=== PATIENT | female | born 1985 | race American Indian/Alaskan Native ===

== ENCOUNTER 2018-12-31 20:40 | Emergency (ER) | payer BC, OTHER ==
[2018-12-31] MEDS ORDERED: Metoclopramide 10 MG/2 ML SDV IVPUSH ONE (21:09)
[2018-12-31 21:19] LABS: ANION GAP 12.6; CHLORIDE,CL 104 mmol/L (101-111); SODIUM,NA 135 mmol/L (135-145)
[2018-12-31] MEDS ORDERED: Famotidine 20 MG/2 ML SDV IVPUSH ONE (21:56)
[2018-12-31] MEDS ORDERED: Iopamidol 612 MG/ML 75 ML Bottle IVPUSH ONE (21:59)
[2018-12-31] MEDS ORDERED: fentaNYL 100 MCG/2 ML SDV IVPUSH ONE (22:05)
[2018-12-31 22:15] VITALS: BP 126/71
--- NOTE | 2018-12-31 23:46 | EDM.PDOC ---
"ED HPI GENERAL MEDICAL PROBLEM - General Chief Complaint: Gastrointestinal Problem Stated Complaint: AMBULANCE Time Seen by Provider: 12/31/18 21:00 Source of Information: Reports: Patient History Limitations: Reports: No Limitations - History of Present Illness INITIAL COMMENTS - FREE TEXT/NARRATIVE: epigastric pain since saturday with nausea, no vomiting. diarrhea this jessica. Poor appetite, some water today. Piece of toast this am. Notes works out daily and sometimes fells like this if dehydrated but has been drinking lots of water with workouts. Abdominal Pain Score (Numeric/FACES): 9 - Related Data Allergies Allergy/AdvReac Type Severity Reaction Status Date / Time adhesive tape Allergy Rash Verified 12/31/18 20:49 amoxicillin [Amoxicillin] Allergy Swelling Verified 12/31/18 20:49 hydrocodone Allergy Nausea and Verified 12/31/18 20:49 Vomiting Home Meds: Home Meds Ranitidine HCl [Ranitidine] 1 tab PO BID PRN 01/26/14 [History] Acetaminophen [Tylenol] 650 mg PO Q4H PRN 07/12/16 [History] Past Medical History - Past Health History Medical/Surgical History: Denies Medical/Surgical History HEENT History: Reports: Impaired Vision Cardiovascular History: Reports: None Respiratory History: Reports: None Gastrointestinal History: Reports: Cholelithiasis, GERD Genitourinary History: Reports: UTI, Recurrent ASPHALT PAVER History: Reports: , Other (See Below) Other ASPHALT PAVER History: delivered Musculoskeletal History: Reports: None Neurological History: Reports: None Psychiatric History: Reports: None Endocrine/Metabolic History: Reports: None Hematologic History: Reports: Anemia Immunologic History: Reports: None Oncologic (Cancer) History: Reports: None Dermatologic History: Reports: Other (See Below) Other Dermatologic History: lt armpit cyst removal hx - Infectious Disease History Infectious Disease History: Reports: Chicken Pox - Past Surgical History Head Surgeries/Procedures: Reports: None GI Surgical History: Reports: Cholecystectomy, EGD Female Surgical History: Reports: Section Social & Family History - Family History Family Medical History: Noncontributory - Tobacco Use Smoking Status *Q: Never Smoker - Caffeine Use Caffeine Use: Reports: Other Other Caffeine Use: pre-work out - Recreational Drug Use Recreational Drug Use: No - Living Situation & Occupation Living situation: Reports: with Family Occupation: Unemployed ED ROS GENERAL - Review of Systems Review Of Systems: ROS reveals no pertinent complaints other than HPI. ED EXAM, GI/ABD - Physical Exam Exam: See Below Exam Limited By: No Limitations General Appearance: Alert, Mild Distress Eyes: Bilateral: EOMI Ears: Normal External Exam Nose: Normal Inspection Throat/Mouth: Normal Inspection Head: Atraumatic, Normocephalic Neck: Normal Inspection, Full Range of Motion Respiratory/Chest: No Respiratory Distress, Lungs Clear, Normal Breath Sounds Cardiovascular: Normal Peripheral Pulses, Regular Rate, Rhythm GI/Abdominal Exam: Normal Bowel Sounds, Soft, Tender (epigastric, mild tenderness deep palpation RLQ) Back Exam: Normal Inspection Extremities: Normal Inspection Neurological: Alert, Oriented, Normal Cognition Psychiatric: Flat Affect Skin Exam: Warm, Dry, Intact, Normal Color Course - Vital Signs Last Recorded V/S: Last Vital Signs Temp 98.1 F 12/31/18 20:57 Pulse 94 12/31/18 22:14 Resp 18 12/31/18 20:57 BP 126/71 12/31/18 22:14 Pulse Ox 100 12/31/18 22:14 Orthostatic Blood Pressure [ 118/70 Standing] Orthostatic Blood Pressure [ 120/66 Sitting] Orthostatic Blood Pressure [ 115/68 Supine] - Orders/Labs/Meds Orders: Active Orders 24 hr Category Date Time Status Orthostatic Vital Signs [RC] ASDIRECTED Care 12/31/18 20:53 Active CULTURE STREP A CONFIRMATION [RM] Urgent Lab 12/31/18 21:07 Results STREP SCRN A RAPID W CULT CONF [RM] Urgent Lab 12/31/18 21:07 Results Labs: Laboratory Tests 12/31/18 12/31/18 12/31/18 Range/Units 20:49 20:49 20:49 WBC 13.7 H (5.0-10.0) 10^3/uL RBC 4.37 (4.2-5.4) 10^6/uL Hgb 12.6 D (12.0-16.0) g/dL Hct 37.6 (37.0-47.0) % MCV 86.0 D (80-100) fL MCH 28.8 (27.0-34.0) pg MCHC 33.5 (33.0-35.0) g/dL Plt Count 250 D (150-450) 10^3/uL Neut % (Auto) 69.6 (42.2-75.2) % Lymph % (Auto) 20.9 (20.5-50.1) % [place] % (Auto) 8.3 H (2-8) % Eos % (Auto) 1.1 (1.0-3.0) % Baso % (Auto) 0.1 (0.0-1.0) % Sodium 135 (135-145) mmol/L Potassium 3.6 (3.6-5.0) mmol/L Chloride 104 (101-111) mmol/L Carbon Dioxide 22.0 (21.0-31.0) mmol/L Anion Gap 12.6 BUN 11 (7-18) mg/dL Creatinine 0.7 (0.6-1.3) mg/dL Est Cr Clr Drug Dosing 114.23 mL/min Estimated GFR (MDRD) > 60 BUN/Creatinine Ratio 15.71 Glucose 85 (74-105) mg/dL Calcium 8.1 L (8.4-10.2) mg/dl Magnesium 1.6 L (1.8-2.5) mg/dL Total Bilirubin 0.4 (0.2-1.0) mg/dL AST 26 (10-42) IU/L ALT 24 (10-60) IU/L Alkaline Phosphatase 32 L (42-121) IU/L Total Protein 7.2 (6.7-8.2) g/dl Albumin 3.4 (3.2-5.5) g/dl Globulin 3.8 Albumin/Globulin Ratio 0.89 Amylase 63 (28-100) U/L Lipase 26 (22-51) U/L TSH, Ultra Sensitive 2.57 (0.45-5.33) uIu/mL HCG, Qual Negative Urine Color (YELLOW) Urine Appearance (CLEAR) Urine pH (5.0-9.0) Ur Specific [place] (1.005-1.030) Urine Protein (NEGATIVE) Urine Glucose (UA) (NEGATIVE) Urine Ketones (NEGATIVE) Urine Occult Blood (NEGATIVE) Urine Nitrite (NEGATIVE) Urine Bilirubin (NEGATIVE) Urine Urobilinogen (0.2-1.0) mg/dL Ur Leukocyte Esterase (NEGATIVE) Urine Opiates Screen (NEGATIVE) Ur Oxycodone Screen (NEGATIVE) Urine Methadone Screen (NEGATIVE) Ur Barbiturates Screen (NEGATIVE) U Tricyclic Antidepress (NEGATIVE) Ur Phencyclidine Scrn (NEGATIVE) Ur Amphetamine Screen (NEGATIVE) U Methamphetamines Scrn (NEGATIVE) Urine MDMA Screen (NEGATIVE) U Benzodiazepines Scrn (NEGATIVE) Urine Cocaine Screen (NEGATIVE) U Marijuana (THC) Screen (NEGATIVE) 12/31/18 12/31/18 Range/Units 20:57 20:57 WBC (5.0-10.0) 10^3/uL RBC (4.2-5.4) 10^6/uL Hgb (12.0-16.0) g/dL Hct (37.0-47.0) % MCV (80-100) fL MCH (27.0-34.0) pg MCHC (33.0-35.0) g/dL Plt Count (150-450) 10^3/uL Neut % (Auto) (42.2-75.2) % Lymph % (Auto) (20.5-50.1) % [place] % (Auto) (2-8) % Eos % (Auto) (1.0-3.0) % Baso % (Auto) (0.0-1.0) % Sodium (135-145) mmol/L Potassium (3.6-5.0) mmol/L Chloride (101-111) mmol/L Carbon Dioxide (21.0-31.0) mmol/L Anion Gap BUN (7-18) mg/dL Creatinine (0.6-1.3) mg/dL Est Cr Clr Drug Dosing mL/min Estimated GFR (MDRD) BUN/Creatinine Ratio Glucose (74-105) mg/dL Calcium (8.4-10.2) mg/dl Magnesium (1.8-2.5) mg/dL Total Bilirubin (0.2-1.0) mg/dL AST (10-42) IU/L ALT (10-60) IU/L Alkaline Phosphatase (42-121) IU/L Total Protein (6.7-8.2) g/dl Albumin (3.2-5.5) g/dl Globulin Albumin/Globulin Ratio Amylase (28-100) U/L Lipase (22-51) U/L TSH, Ultra Sensitive (0.45-5.33) uIu/mL HCG, Qual Urine Color Yellow (YELLOW) Urine Appearance Clear (CLEAR) Urine pH 6.5 (5.0-9.0) Ur Specific [place] <= 1.005 (1.005-1.030) Urine Protein Negative (NEGATIVE) Urine Glucose (UA) Negative (NEGATIVE) Urine Ketones Negative (NEGATIVE) Urine Occult Blood Negative (NEGATIVE) Urine Nitrite Negative (NEGATIVE) Urine Bilirubin Negative (NEGATIVE) Urine Urobilinogen 0.2 (0.2-1.0) mg/dL Ur Leukocyte Esterase Negative (NEGATIVE) Urine Opiates Screen Negative (NEGATIVE) Ur Oxycodone Screen Negative (NEGATIVE) Urine Methadone Screen Negative (NEGATIVE) Ur Barbiturates Screen Negative (NEGATIVE) U Tricyclic Antidepress Negative (NEGATIVE) Ur Phencyclidine Scrn Negative (NEGATIVE) Ur Amphetamine Screen Negative (NEGATIVE) U Methamphetamines Scrn Negative (NEGATIVE) Urine MDMA Screen Negative (NEGATIVE) U Benzodiazepines Scrn Negative (NEGATIVE) Urine Cocaine Screen Negative (NEGATIVE) U Marijuana (THC) Screen Negative (NEGATIVE) Meds: Medications Discontinued Medications Generic Name Dose Route Start Last Admin Trade Name Freq PRN Reason Stop Dose Admin Famotidine 20 mg 12/31/18 21:56 12/31/18 22:12 Pepcid IVPUSH 12/31/18 21:57 20 mg ONETIME ONE Administration Fentanyl 50 mcg 12/31/18 22:05 12/31/18 22:14 Sublimaze IVPUSH 12/31/18 22:06 50 mcg ONETIME ONE Administration Iopamidol 75 ml 12/31/18 21:59 12/31/18 22:25 Isovue-300 (61%) IVPUSH 12/31/18 22:00 75 ml ONETIME ONE Administration Metoclopramide HCl 10 mg 12/31/18 21:09 12/31/18 21:13 Reglan IVPUSH 12/31/18 21:10 10 mg ONETIME ONE Administration Promethazine HCl Confirm 12/31/18 23:48 12/31/18 23:50 Phenergan Administered 12/31/18 23:49 Not Given Dose 25 mg .ROUTE .[facility] - Radiology Interpretation Free Text/Narrative:: [facility] Final Radiology Report Call: [phone] assistance Online chat: [email or web address] Name: ANAMARIA PERRY Age: 33Years F Date: 12/31/2018 SSN: -- : [id number] Study: CT ABDOMEN/PELVIS W Requesting Physician: SHAWNA VILLANUEVA Images: [id number] Addl Studies: Provided Clinical History: Nausea, RLQ pain, left flank pain, wbc 13.7 Contrast: With Contrast Medium: ISO 300 Contrast Amount: 75 mL Contrast Method: L Wrist Page 1 of 2 EXAM: CT Abdomen and Pelvis With Contrast EXAM DATE/TIME: 12/31/2018 10:13 PM CLINICAL HISTORY: 33 years old, female; Abdominal pain; Generalized; Prior surgery; Surgery date: 6+ months; Surgery type: Cholecystectomy; Additional info: Nausea, rlq pain, left flank pain, wbc 13.7 TECHNIQUE: Imaging protocol: Axial computed tomography images of the abdomen and pelvis with intravenous contrast. Coronal and sagittal reformatted images were created and reviewed. Radiation optimization: All CT scans at this facility use at least one of these dose optimization techniques: automated exposure control; mA and/or kV adjustment per patient size (includes targeted exams where dose is matched to clinical indication); or iterative reconstruction. Contrast material: ISO 300; Contrast volume: 75 ml; Contrast route: L WRIST; COMPARISON: CT Abdomen Pelvis wo Cont 01/26/2014 8:07 AM FINDINGS: Lungs: There are no suspicious pulmonary nodules or areas of lung consolidation. ABDOMEN: Liver: The liver is normal in architecture, without suspicious abnormality. Gallbladder and bile ducts: The gallbladder is surgically absent. Pancreas: The pancreatic parenchyma is normal in bulk and sharply marginated. Duct is not dilated. No calcifications, masses, or abnormal fluid collections. Spleen: Spleen is normal in size. No mass or fluid collection. AMAANGELICANAMARIA Aguilar | Final Radiology Report CONFIDENTIALITY STATEMENT This report is intended only for use by the referring physician, and only in accordance with law. If you received this in error, call [phone]. Page 2 of 2 Adrenals: There are no adrenal masses. Kidneys and ureters: Normal in parenchymal bulk. No hydronephrosis or asymmetric perinephric stranding. No solid masses. No stones. Stomach and bowel: Fluid distending the stomach. Small bowel is suspected to be thickened and not dilated.Gas and stool are present within colon. Appendix: The appendix is seen. It is normal. PELVIS: Bladder: The bladder is nearly completely void of urine. Reproductive: The uterus and ovaries are within normal limits. There are no adenexal masses. ABDOMEN and PELVIS: Intraperitoneal space: No ascites. No abscess. No inflammation within the intra- abdominal fat. No pneumoperitoneum. No mass. Bones/joints: Age appropriate. No acute fracture. No dislocation. Soft tissues: See Intraperitoneal Space Finding. Vasculature: Normal. No abdominal aortic aneurysm. Lymph nodes: There are no enlarged celiac, mesenteric, periportal, extraperitoneal or inguinal lymph nodes. IMPRESSION: 1. Normal appendix. 2. Possible enteritis. Thank you for allowing us to participate in the care of your patient. Dictated and Authenticated by: Manpreet Isaac MD 12/31/2018 11:10 PM Central Time ([place] & [place] Departure - Departure Time of Disposition: 23:41 Disposition: Home, Self-Care 01 Condition: Good Clinical Impression: Nausea, Gastroenteritis - Discharge Information *PRESCRIPTION DRUG MONITORING PROGRAM REVIEWED*: Not Applicable *COPY OF PRESCRIPTION DRUG MONITORING REPORT IN PATIENT NABILA: Not Applicable Instructions: Nausea, Adult, [id number] Referrals: PCP,None [Primary Care Provider] - Forms: ED Department Discharge Additional Instructions: sips liquid tonight allow stomach to rest, gradual increase in fluids tomorrow, if tolerating gradual increase in diet small maounts bland low spice or grease. phenergan 25mg one tablet tonight then zofran 4mg every 4 hours as needed for nausea follow up if uncontrolled vomiting, severe pain or fever pepcid 10mg OTC one twice daily for one week then as needed - My Orders Last 24 Hours: My Active Orders 12/31/18 20:53 Orthostatic Vital Signs [RC] ASDIRECTED 12/31/18 21:07 CULTURE STREP A CONFIRMATION [RM] Urgent STREP SCRN A RAPID W CULT CONF [RM] Urgent - Assessment/Plan Last 24 Hours: My Active Orders 12/31/18 20:53 Orthostatic Vital Signs [RC] ASDIRECTED 12/31/18 21:07 CULTURE STREP A CONFIRMATION [RM] Urgent STREP SCRN A RAPID W CULT CONF [RM] Urgent"
[2018-12-31] MEDS ORDERED: Promethazine 25 MG Tab ONE (23:48)
== END 2018-12-31 23:55 | disposition home or self-care (01) ==
LOC: DL.ED 20:40
DX: K52.9 Noninfective gastroenteritis and colitis, unspecified (principal); Z88.1 Allergy status to other antibiotic agents; Z88.5 Allergy status to narcotic agent; Z79.899 Other long term (current) drug therapy
CPT/HCPCS: 36415; 74177; 80053; 80305; 81003; 82150; 83690; 83735; 84443; 84703; 85025; 87081; 87430; 96374; 96375; 99285; J2765; J3010; J3490; Q9967

== ENCOUNTER 2019-09-05 21:51 | Emergency (ER) | payer BC ==
[2019-09-05 22:07] VITALS: BP 131/91; PULSE 87
[2019-09-05] MEDS ORDERED: fentaNYL 100 MCG/2 ML SDV IVPUSH ONE (22:10)
[2019-09-05] MEDS ORDERED: Sodium Chloride 0.9% 1,000 ML IV ONE (22:10)
[2019-09-05] MEDS ORDERED: Ondansetron 4 MG/2 ML SDV IVPUSH ONE ×2 (22:10→23:58)
--- NOTE | 2019-09-05 22:13 | EDM.PDOC ---
ED HPI GENERAL MEDICAL PROBLEM - General Chief Complaint: Gastrointestinal Problem Stated Complaint: RIGHT SIDE HURTING Time Seen by Provider: 09/05/19 22:13 Source of Information: Reports: Patient History Limitations: Reports: No Limitations - History of Present Illness INITIAL COMMENTS - FREE TEXT/NARRATIVE: sick all week, diarrhoea nausea lots of abd pain. no GB but still has appy. Abdomen Pain Score (Numeric/FACES): 10 - Related Data Allergies Allergy/AdvReac Type Severity Reaction Status Date / Time adhesive tape Allergy Rash Verified 09/05/19 22:35 amoxicillin [Amoxicillin] Allergy Swelling Verified 09/05/19 22:35 hydrocodone Allergy Nausea and Verified 09/05/19 22:35 Vomiting Home Meds: Home Meds Ranitidine HCl [Ranitidine] 1 tab PO BID PRN 01/26/14 [History] Acetaminophen [Tylenol] 650 mg PO Q4H PRN 07/12/16 [History] Past Medical History - Past Health History Medical/Surgical History: Denies Medical/Surgical History HEENT History: Reports: Impaired Vision Cardiovascular History: Reports: None Respiratory History: Reports: None Gastrointestinal History: Reports: Cholelithiasis, GERD Genitourinary History: Reports: UTI, Recurrent DATA INTEGRITY SPECIALIST History: Reports: , Other (See Below) Other DATA INTEGRITY SPECIALIST History: delivered Musculoskeletal History: Reports: None Neurological History: Reports: None Psychiatric History: Reports: None Endocrine/Metabolic History: Reports: None Hematologic History: Reports: Anemia Immunologic History: Reports: None Oncologic (Cancer) History: Reports: None Dermatologic History: Reports: Other (See Below) Other Dermatologic History: lt armpit cyst removal hx - Infectious Disease History Infectious Disease History: Reports: Chicken Pox - Past Surgical History Head Surgeries/Procedures: Reports: None GI Surgical History: Reports: Cholecystectomy, EGD Female Surgical History: Reports: Section Social & Family History - Family History Family Medical History: Noncontributory - Caffeine Use Caffeine Use: Reports: Other Other Caffeine Use: pre-work out - Living Situation & Occupation Living situation: Reports: with Family Occupation: Unemployed ED ROS GENERAL - Review of Systems Review Of Systems: Comprehensive ROS is negative, except as noted in HPI. ED EXAM, GI/ABD - Physical Exam Exam: See Below Exam Limited By: No Limitations General Appearance: Alert, WD/WN, Mild Distress, Moderate Distress, Active Emesis, Other (crying and retching) Ears: Hearing Grossly Normal Throat/Mouth: Normal Voice, No Airway Compromise Head: Atraumatic Neck: Non-Tender, Full Range of Motion Respiratory/Chest: No Respiratory Distress Cardiovascular: Regular Rate, Rhythm GI/Abdominal Exam: Tender, Other (generalized). No: Distended, Guarding, Rigid , Rebound Neurological: Alert, Oriented, Normal Cognition, No Motor/Sensory Deficits Psychiatric: Flat Affect, Tearful Skin Exam: Warm, Dry, Normal Color Lymphatic: No Adenopathy Course - Vital Signs Last Recorded V/S: Last Vital Signs Temp 36.4 C 09/05/19 22:06 Pulse 87 09/05/19 22:06 Resp 24 H 09/05/19 22:06 BP 131/91 H 09/05/19 22:06 Pulse Ox 100 09/05/19 22:06 - Orders/Labs/Meds Labs: Laboratory Tests 09/05/19 09/05/19 09/05/19 Range/Units 22:20 22:20 22:20 WBC 15.7 H (5.0-10.0) 10^3/uL RBC 4.82 (4.2-5.4) 10^6/uL Hgb 14.0 (12.0-16.0) g/dL Hct 40.6 (37.0-47.0) % MCV 84.2 (80-100) fL MCH 29.0 (27.0-34.0) pg MCHC 34.5 (33.0-35.0) g/dL Plt Count 308 (150-450) 10^3/uL Neut % (Auto) 63.1 (42.2-75.2) % Lymph % (Auto) 26.1 (20.5-50.1) % [place] % (Auto) 9.6 H (2-8) % Eos % (Auto) 1.0 (1.0-3.0) % Baso % (Auto) 0.2 (0.0-1.0) % Sodium 137 (135-145) mmol/L Potassium 3.2 L (3.6-5.0) mmol/L Chloride 104 (101-111) mmol/L Carbon Dioxide 20.0 L (21.0-31.0) mmol/L Anion Gap 16.2 BUN 13 (7-18) mg/dL Creatinine 0.8 (0.6-1.3) mg/dL Est Cr Clr Drug Dosing 99.01 mL/min Estimated GFR (MDRD) > 60 BUN/Creatinine Ratio 16.25 Glucose 144 H (74-105) mg/dL Calcium 8.8 (8.4-10.2) mg/dl Total Bilirubin 0.4 (0.2-1.0) mg/dL AST 23 (10-42) IU/L ALT 18 (10-60) IU/L Alkaline Phosphatase 35 L (42-121) IU/L Total Protein 7.8 (6.7-8.2) g/dl Albumin 3.8 (3.2-5.5) g/dl Globulin 4.0 Albumin/Globulin Ratio 0.95 Amylase 66 (28-100) U/L Lipase 34 (22-51) U/L HCG, Qual Negative Urine Color (YELLOW) Urine Appearance (CLEAR) Urine pH (5.0-9.0) Ur Specific [place] (1.005-1.030) Urine Protein (NEGATIVE) Urine Glucose (UA) (NEGATIVE) Urine Ketones (NEGATIVE) Urine Occult Blood (NEGATIVE) Urine Nitrite (NEGATIVE) Urine Bilirubin (NEGATIVE) Urine Urobilinogen (0.2-1.0) mg/dL Ur Leukocyte Esterase (NEGATIVE) Urine RBC /HPF Urine WBC (0-5/HPF) /HPF Ur Epithelial Cells (NOT SEEN) /HPF Urine Bacteria (0-FEW/HPF) /HPF Urine Mucus (NOT SEEN) /LPF Urine Other Urine Yeast (NOT SEEN) /HPF Urine Opiates Screen (NEGATIVE) Ur Oxycodone Screen (NEGATIVE) Urine Methadone Screen (NEGATIVE) Ur Barbiturates Screen (NEGATIVE) U Tricyclic Antidepress (NEGATIVE) Ur Phencyclidine Scrn (NEGATIVE) Ur Amphetamine Screen (NEGATIVE) U Methamphetamines Scrn (NEGATIVE) Urine MDMA Screen (NEGATIVE) U Benzodiazepines Scrn (NEGATIVE) Urine Cocaine Screen (NEGATIVE) U Marijuana (THC) Screen (NEGATIVE) 09/05/19 09/05/19 Range/Units 22:55 22:55 WBC (5.0-10.0) 10^3/uL RBC (4.2-5.4) 10^6/uL Hgb (12.0-16.0) g/dL Hct (37.0-47.0) % MCV (80-100) fL MCH (27.0-34.0) pg MCHC (33.0-35.0) g/dL Plt Count (150-450) 10^3/uL Neut % (Auto) (42.2-75.2) % Lymph % (Auto) (20.5-50.1) % [place] % (Auto) (2-8) % Eos % (Auto) (1.0-3.0) % Baso % (Auto) (0.0-1.0) % Sodium (135-145) mmol/L Potassium (3.6-5.0) mmol/L Chloride (101-111) mmol/L Carbon Dioxide (21.0-31.0) mmol/L Anion Gap BUN (7-18) mg/dL Creatinine (0.6-1.3) mg/dL Est Cr Clr Drug Dosing mL/min Estimated GFR (MDRD) BUN/Creatinine Ratio Glucose (74-105) mg/dL Calcium (8.4-10.2) mg/dl Total Bilirubin (0.2-1.0) mg/dL AST (10-42) IU/L ALT (10-60) IU/L Alkaline Phosphatase (42-121) IU/L Total Protein (6.7-8.2) g/dl Albumin (3.2-5.5) g/dl Globulin Albumin/Globulin Ratio Amylase (28-100) U/L Lipase (22-51) U/L HCG, Qual Urine Color Yellow (YELLOW) Urine Appearance Slightly cloudy (CLEAR) Urine pH 6.5 (5.0-9.0) Ur Specific [place] 1.020 (1.005-1.030) Urine Protein Negative (NEGATIVE) Urine Glucose (UA) Negative (NEGATIVE) Urine Ketones Negative (NEGATIVE) Urine Occult Blood Small H (NEGATIVE) Urine Nitrite Negative (NEGATIVE) Urine Bilirubin Negative (NEGATIVE) Urine Urobilinogen 1.0 (0.2-1.0) mg/dL Ur Leukocyte Esterase Trace H (NEGATIVE) Urine RBC 0-5 /HPF Urine WBC 10-20 H (0-5/HPF) /HPF Ur Epithelial Cells Many H (NOT SEEN) /HPF Urine Bacteria Many H (0-FEW/HPF) /HPF Urine Mucus Moderate H (NOT SEEN) /LPF Urine Other See note Urine Yeast Few H (NOT SEEN) /HPF Urine Opiates Screen Negative (NEGATIVE) Ur Oxycodone Screen Negative (NEGATIVE) Urine Methadone Screen Negative (NEGATIVE) Ur Barbiturates Screen Negative (NEGATIVE) U Tricyclic Antidepress Negative (NEGATIVE) Ur Phencyclidine Scrn Negative (NEGATIVE) Ur Amphetamine Screen Negative (NEGATIVE) U Methamphetamines Scrn Negative (NEGATIVE) Urine MDMA Screen Negative (NEGATIVE) U Benzodiazepines Scrn Negative (NEGATIVE) Urine Cocaine Screen Negative (NEGATIVE) U Marijuana (THC) Screen Positive H (NEGATIVE) Meds: Medications Discontinued Medications Generic Name Dose Route Start Last Admin Trade Name Freq PRN Reason Stop Dose Admin Fentanyl 50 mcg 09/05/19 22:10 09/05/19 22:25 Sublimaze IVPUSH 09/05/19 22:11 50 mcg ONETIME ONE Administration Sodium Chloride 1,000 mls @ 999 mls/hr 09/05/19 22:10 09/05/19 22:26 Normal Saline IV 09/05/19 23:10 999 mls/hr .BOLUS ONE Administration Iopamidol 100 ml 09/05/19 22:41 09/05/19 22:50 Isovue-300 (61%) IVPUSH 09/05/19 22:42 100 ml ONETIME ONE Administration Ondansetron HCl 4 mg 09/05/19 22:10 09/05/19 22:24 Zofran IVPUSH 09/05/19 22:11 4 mg ONETIME ONE Administration - Re-Assessments/Exams Free Text/Narrative Re-Assessment/Exam: 09/05/19 23:51 results discussed with pt. Departure - Departure Time of Disposition: 23:52 Disposition: Home, Self-Care 01 Condition: Good Clinical Impression: Nausea, Gastroenteritis, UTI, Urinary tract infectious disease - Discharge Information Instructions: Nausea and Vomiting, Adult, Cost-ua-Tpen Forms: ED Department Discharge Additional Instructions: 1) avoid solid foods next 48 hours 2) drink lots of liquids 3) follow up at clinic rx given; macrobid 100mg bid x 20 pyridium 100mg tid prn x 12 zofran ODT 4mg bid prn x 4 Sepsis Event Note - Evaluation Sepsis Screening Result: No Definite Risk - Focused Exam Vital Signs: Vital Signs Temp Pulse Resp BP Pulse Ox 09/05/19 22:06 36.4 C 87 24 H 131/91 H 100 Date Exam was Performed: 09/05/19 Time Exam was Performed: 23:51
[2019-09-05] MEDS ORDERED: Iopamidol 612 MG/ML 100 ML Bottle IVPUSH ONE (22:41)
[2019-09-05 22:43] LABS: ANION GAP 16.2; CHLORIDE,CL 104 mmol/L (101-111); SODIUM,NA 137 mmol/L (135-145)
[2019-09-06] MEDS ORDERED: Ondansetron 4 MG/2 ML SDV ONE (00:04)
== END 2019-09-06 00:15 | disposition home or self-care (01) ==
LOC: DL.ED 21:51
DX: K52.9 Noninfective gastroenteritis and colitis, unspecified (principal); N39.0 Urinary tract infection, site not specified; K21.9 Gastro-esophageal reflux disease without esophagitis; Z88.0 Allergy status to penicillin; Z88.5 Allergy status to narcotic agent; Z91.048 Other nonmedicinal substance allergy status
CPT/HCPCS: 36415; 74177; 80053; 82150; 83690; 84703; 85025; 96361; 96374; 96375; 96376; 99284; J2405; J3010; J7030; Q9967

== ENCOUNTER 2019-09-10 05:48 | Emergency (ER) | payer BC ==
[2019-09-10 05:55] VITALS: BP 124/84; PULSE 78
[2019-09-10] MEDS ORDERED: Sodium Chloride 0.9% 1,000 ML IV ONE (06:03)
[2019-09-10] MEDS ORDERED: Metoclopramide 10 MG/2 ML SDV IVPUSH ONE (06:05)
--- NOTE | 2019-09-10 06:15 | EDM.PDOC ---
ED HPI GENERAL MEDICAL PROBLEM - General Chief Complaint: Genitourinary Problem Stated Complaint: UTI Time Seen by Provider: 09/10/19 06:00 Source of Information: Reports: Patient, RN History Limitations: Reports: No Limitations - History of Present Illness INITIAL COMMENTS - FREE TEXT/NARRATIVE: ED with c/o nausea dizziness since 3am, Seen in ED Saturday. Started n Macrodantin for UTI. low abdominal cramping, LMP 3 weeks ago. Now also back pain. Chills o fever. no frequency or burning. Feel "dehydrated again". Has not been eating until today. Not drinking as much as usual. Right Lower Back Pain Score (Numeric/FACES): 10 - Related Data Allergies Allergy/AdvReac Type Severity Reaction Status Date / Time adhesive tape Allergy Rash Verified 09/10/19 05:55 amoxicillin [Amoxicillin] Allergy Swelling Verified 09/10/19 05:55 hydrocodone Allergy Nausea and Verified 09/10/19 05:55 Vomiting Home Meds: Home Meds Ranitidine HCl [Ranitidine] 1 tab PO BID PRN 01/26/14 [History] Acetaminophen [Tylenol] 650 mg PO Q4H PRN 07/12/16 [History] Past Medical History - Past Health History Medical/Surgical History: Denies Medical/Surgical History HEENT History: Reports: Impaired Vision Cardiovascular History: Reports: None Respiratory History: Reports: None Gastrointestinal History: Reports: Cholelithiasis, GERD Genitourinary History: Reports: UTI, Recurrent SNOWSPORT INSTRUCTOR History: Reports: , Other (See Below) Other SNOWSPORT INSTRUCTOR History: delivered Musculoskeletal History: Reports: None Neurological History: Reports: None Psychiatric History: Reports: None Endocrine/Metabolic History: Reports: None Hematologic History: Reports: Anemia Immunologic History: Reports: None Oncologic (Cancer) History: Reports: None Dermatologic History: Reports: Other (See Below) Other Dermatologic History: lt armpit cyst removal hx - Infectious Disease History Infectious Disease History: Reports: Chicken Pox - Past Surgical History Head Surgeries/Procedures: Reports: None GI Surgical History: Reports: Cholecystectomy, EGD Female Surgical History: Reports: Section Social & Family History - Family History Family Medical History: Noncontributory - Tobacco Use Smoking Status *Q: Never Smoker Second Hand Smoke Exposure: No - Caffeine Use Caffeine Use: Reports: Other Other Caffeine Use: pre-work out - Recreational Drug Use Recreational Drug Use: No - Living Situation & Occupation Living situation: Reports: with Family Occupation: Unemployed ED ROS GENERAL - Review of Systems Review Of Systems: Comprehensive ROS is negative, except as noted in HPI. ED EXAM, RENAL/ - Physical Exam Exam: See Below Exam Limited By: No Limitations General Appearance: Alert, Mild Distress Eye Exam: Bilateral Eye: EOMI Ears: Normal External Exam Nose: Normal Inspection Throat/Mouth: Normal Inspection, Normal Voice Head: Atraumatic, Normocephalic Neck: Normal Inspection, Full Range of Motion Respiratory/Chest: No Respiratory Distress Cardiovascular: Normal Peripheral Pulses, Regular Rate, Rhythm GI/Abdominal: Normal Bowel Sounds, Soft, No Distention, Tender (supropubic) Back Exam: CVA Tenderness (L), CVA Tenderness (R) Extremities: Normal Inspection, Normal Range of Motion Neurological: Alert, Oriented, Normal Cognition Psychiatric: Normal Affect, Normal Mood Skin Exam: Warm, Dry, Intact, Normal Color Course - Vital Signs Last Recorded V/S: Last Vital Signs Temp 97.4 F 09/10/19 05:51 Pulse 78 09/10/19 05:51 Resp 18 09/10/19 05:51 BP 124/84 09/10/19 05:51 Pulse Ox 99 09/10/19 05:51 - Orders/Labs/Meds Orders: Active Orders 24 hr Category Date Time Status COMPREHENSIVE METABOLIC PN,CMP [CHEM] Stat Lab 09/10/19 06:12 Received CULTURE BLOOD [BC] Stat Lab 09/10/19 06:12 Received CULTURE URINE [RM] Urgent Lab 09/10/19 05:59 Received Sodium Chloride 0.9% [Normal Saline] 1,000 ml Med 09/10/19 06:03 Active IV .BOLUS Medication Orders Sodium Chloride (Normal Saline) 1,000 mls @ 999 mls/hr IV .BOLUS ONE Stop: 09/10/19 07:03 Last Admin: 09/10/19 06:15 Dose: 999 mls/hr Labs: Laboratory Tests 09/10/19 09/10/19 09/10/19 Range/Units 05:59 05:59 06:12 WBC 10.4 H (5.0-10.0) 10^3/uL RBC 4.41 (4.2-5.4) 10^6/uL Hgb 12.7 (12.0-16.0) g/dL Hct 37.5 (37.0-47.0) % MCV 85.0 (80-100) fL MCH 28.8 (27.0-34.0) pg MCHC 33.9 (33.0-35.0) g/dL Plt Count 253 (150-450) 10^3/uL Neut % (Auto) 68.6 (42.2-75.2) % Lymph % (Auto) 18.1 L (20.5-50.1) % [place] % (Auto) 10.9 H (2-8) % Eos % (Auto) 2.1 (1.0-3.0) % Baso % (Auto) 0.3 (0.0-1.0) % Lactic Acid (0.5-2.0) mmol/L Urine Color [place] (YELLOW) Urine Appearance Slightly cloudy (CLEAR) Urine pH 6.0 (5.0-9.0) Ur Specific [place] 1.020 (1.005-1.030) Urine Protein Negative (NEGATIVE) Urine Glucose (UA) 100 H (NEGATIVE) Urine Ketones Negative (NEGATIVE) Urine Occult Blood Negative (NEGATIVE) Urine Nitrite Positive H (NEGATIVE) Urine Bilirubin Negative (NEGATIVE) Urine Urobilinogen 1.0 (0.2-1.0) mg/dL Ur Leukocyte Esterase Negative (NEGATIVE) Urine RBC Not seen /HPF Urine WBC Not seen (0-5/HPF) /HPF Ur Epithelial Cells Moderate H (NOT SEEN) /HPF Urine Bacteria Rare (0-FEW/HPF) /HPF Urine Mucus Rare (NOT SEEN) /LPF Urine HCG, Qual Negative 09/10/19 Range/Units 06:12 WBC (5.0-10.0) 10^3/uL RBC (4.2-5.4) 10^6/uL Hgb (12.0-16.0) g/dL Hct (37.0-47.0) % MCV (80-100) fL MCH (27.0-34.0) pg MCHC (33.0-35.0) g/dL Plt Count (150-450) 10^3/uL Neut % (Auto) (42.2-75.2) % Lymph % (Auto) (20.5-50.1) % [place] % (Auto) (2-8) % Eos % (Auto) (1.0-3.0) % Baso % (Auto) (0.0-1.0) % Lactic Acid 1.0 (0.5-2.0) mmol/L Urine Color (YELLOW) Urine Appearance (CLEAR) Urine pH (5.0-9.0) Ur Specific [place] (1.005-1.030) Urine Protein (NEGATIVE) Urine Glucose (UA) (NEGATIVE) Urine Ketones (NEGATIVE) Urine Occult Blood (NEGATIVE) Urine Nitrite (NEGATIVE) Urine Bilirubin (NEGATIVE) Urine Urobilinogen (0.2-1.0) mg/dL Ur Leukocyte Esterase (NEGATIVE) Urine RBC /HPF Urine WBC (0-5/HPF) /HPF Ur Epithelial Cells (NOT SEEN) /HPF Urine Bacteria (0-FEW/HPF) /HPF Urine Mucus (NOT SEEN) /LPF Urine HCG, Qual Meds: Medications Generic Name Dose Route Start Last Admin Trade Name Freq PRN Reason Stop Dose Admin Sodium Chloride 1,000 mls @ 999 mls/hr 09/10/19 06:03 09/10/19 06:15 Normal Saline IV 09/10/19 07:03 999 mls/hr .BOLUS ONE Administration Discontinued Medications Generic Name Dose Route Start Last Admin Trade Name Freq PRN Reason Stop Dose Admin Ciprofloxacin 500 mg 09/10/19 06:22 09/10/19 06:27 Ciprofloxacin Hcl PO 09/10/19 06:23 500 mg ONETIME ONE Administration Ketorolac Tromethamine 30 mg 09/10/19 06:22 09/10/19 06:26 Toradol IVPUSH 09/10/19 06:23 30 mg ONETIME ONE Administration Metoclopramide HCl 10 mg 09/10/19 06:05 09/10/19 06:16 Reglan IVPUSH 09/10/19 06:06 10 mg ONETIME ONE Administration Departure - Departure Time of Disposition: 06:37 Disposition: Home, Self-Care 01 Condition: Good Clinical Impression: Pyelonephritis, Bacterial vaginosis, Nausea - Discharge Information *PRESCRIPTION DRUG MONITORING PROGRAM REVIEWED*: No *COPY OF PRESCRIPTION DRUG MONITORING REPORT IN PATIENT NABILA: No Instructions: Pyelonephritis, Adult, [id number] Forms: ED Department Discharge Additional Instructions: cipro 500mg one twice daily for one week metrondiazole 500mg one twice daily for one week zofran 4mg ODT one every 4 hours as needed for nausea or vomiting increase fluids alternate tylenol 650mg and ibuprofen 600mg every 6 hours as needed for discomfort. Follow up if increase fever chills or uncontrolled nausea Sepsis Event Note - Evaluation Sepsis Screening Result: No Definite Risk - Focused Exam Vital Signs: Vital Signs Temp Pulse Resp BP Pulse Ox 09/10/19 05:51 97.4 F 78 18 124/84 99 Date Exam was Performed: 09/10/19 Time Exam was Performed: 06:47 - My Orders Last 24 Hours: My Active Orders 09/10/19 05:59 CULTURE URINE [RM] Urgent 09/10/19 06:03 Sodium Chloride 0.9% [Normal Saline] 1,000 ml IV .BOLUS 09/10/19 06:12 COMPREHENSIVE METABOLIC PN,CMP [CHEM] Stat CULTURE BLOOD [BC] Stat - Assessment/Plan Last 24 Hours: My Active Orders 09/10/19 05:59 CULTURE URINE [RM] Urgent 09/10/19 06:03 Sodium Chloride 0.9% [Normal Saline] 1,000 ml IV .BOLUS 09/10/19 06:12 COMPREHENSIVE METABOLIC PN,CMP [CHEM] Stat CULTURE BLOOD [BC] Stat
[2019-09-10] MEDS ORDERED: Ciprofloxacin 500 MG Tab PO ONE (06:22)
[2019-09-10] MEDS ORDERED: Ketorolac 30 MG/ML SDV IVPUSH ONE (06:22)
[2019-09-10 06:39] LABS: ANION GAP 11.6; CHLORIDE,CL 104 mmol/L (101-111); SODIUM,NA 137 mmol/L (135-145)
== END 2019-09-10 06:57 | disposition home or self-care (01) ==
LOC: DL.ED 05:48
DX: N12 Tubulo-interstitial nephritis, not specified as acute or chronic (principal); N76.0 Acute vaginitis; B96.89 Other specified bacterial agents as the cause of diseases classified elsewhere; Z88.0 Allergy status to penicillin; Z88.5 Allergy status to narcotic agent; Z91.048 Other nonmedicinal substance allergy status
CPT/HCPCS: 36415; 80053; 81001; 81025; 83605; 85025; 87040; 87086; 96361; 96374; 96375; 99284; A9270; J1885; J2765; J7030

== ENCOUNTER 2020-05-15 05:30 | Emergency (ER) | payer BC, OTHER ==
[2020-05-15 05:48] VITALS: BP 131/74; PULSE 92
[2020-05-15] MEDS ORDERED: Ondansetron 4 MG Tab.DIS PO ONE ×2 (05:56→07:40)
--- NOTE | 2020-05-15 05:56 | EDM.PDOC ---
<Nelly Martinez - Last Filed: 05/15/20 06:39> ED HPI GENERAL MEDICAL PROBLEM - General Chief Complaint: Gastrointestinal Problem Stated Complaint: AMBULANCE Time Seen by Provider: 05/15/20 05:55 Source of Information: Reports: Patient, RN, RN Notes Reviewed History Limitations: Reports: No Limitations - History of Present Illness INITIAL COMMENTS - FREE TEXT/NARRATIVE: Patient presents to ER per [facility] with complaint of nausea and dehydration. Patient states she has been nauseated for 3 days and as of lately has not been able to take in as much fluids normal. Still able to eat. Denies vomiting. Admits to some diarrhea. States her gallbladder has been removed, but she still has her appendix. Denies any chances of . Admits she has a coworker who lives with someone who is positive for COVID. Patient states she is not been tested recently. States she feels like she is short of breath sometimes because she gets worked up. Denies any chest pains. Onset: Gradual Epigastric Pain Score (Numeric/FACES): 8 - Related Data Allergies Allergy/AdvReac Type Severity Reaction Status Date / Time adhesive tape Allergy Rash Verified 09/10/19 05:55 amoxicillin [Amoxicillin] Allergy Swelling Verified 09/10/19 05:55 hydrocodone Allergy Nausea and Verified 09/10/19 05:55 Vomiting Home Meds: Home Meds Ranitidine HCl [Ranitidine] 1 tab PO BID PRN 01/26/14 [History] Acetaminophen [Tylenol] 650 mg PO Q4H PRN 07/12/16 [History] Past Medical History - Past Health History Medical/Surgical History: Denies Medical/Surgical History HEENT History: Reports: Impaired Vision Cardiovascular History: Reports: None Respiratory History: Reports: None Gastrointestinal History: Reports: Cholelithiasis, GERD Genitourinary History: Reports: UTI, Recurrent 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: , Other (See Below) Other AIR CONDITIONING MANAGER History: delivered Musculoskeletal History: Reports: None Neurological History: Reports: None Psychiatric History: Reports: None Endocrine/Metabolic History: Reports: None Hematologic History: Reports: Anemia Immunologic History: Reports: None Oncologic (Cancer) History: Reports: None Dermatologic History: Reports: Other (See Below) Other Dermatologic History: lt armpit cyst removal hx - Infectious Disease History Infectious Disease History: Reports: Chicken Pox - Past Surgical History Head Surgeries/Procedures: Reports: None GI Surgical History: Reports: Cholecystectomy, EGD Female Surgical History: Reports: Section Social & Family History - Family History Family Medical History: Noncontributory - Tobacco Use Smoking Status *Q: Never Smoker Second Hand Smoke Exposure: No - Caffeine Use Caffeine Use: Reports: Other Other Caffeine Use: pre-work out - Recreational Drug Use Recreational Drug Use: No - Living Situation & Occupation Living situation: Reports: with Family Occupation: Unemployed ED ROS GENERAL - Review of Systems Review Of Systems: Comprehensive ROS is negative, except as noted in HPI. ED EXAM, GENERAL - Physical Exam Exam: See Below Exam Limited By: No Limitations General Appearance: Alert, WD/WN, No Apparent Distress Eye Exam: Bilateral Eye: EOMI, Normal Inspection Ears: Normal External Exam, Hearing Grossly Normal Nose: Normal Inspection Throat/Mouth: Normal Inspection, Normal Lips, Normal Teeth, Normal Gums, Normal Oropharynx, Normal Voice, No Airway Compromise Head: Atraumatic, Normocephalic Neck: Normal Inspection, Supple, Non-Tender, Full Range of Motion Respiratory/Chest: No Respiratory Distress, Lungs Clear, Normal Breath Sounds, No Accessory Muscle Use, Chest Non-Tender Cardiovascular: Normal Peripheral Pulses, Regular Rate, Rhythm, No Edema, No Gallop, No JVD, No Murmur, No Rub Peripheral Pulses: 2+: Radial (L), Radial (R) GI/Abdominal: Normal Bowel Sounds, Soft, No Organomegaly, No Distention, No Abnormal Bruit, No Mass, Pelvis Stable, Tender (diffuse) (Female) Exam: Deferred Rectal (Female) Exam: Deferred Back Exam: Normal Inspection, Full Range of Motion, NT Extremities: Normal Inspection, Normal Range of Motion, Non-Tender, Normal Capillary Refill, No Pedal Edema Neurological: Alert, Oriented, CN II-XII Intact, Normal Cognition, Normal Gait, Normal Reflexes, No Motor/Sensory Deficits Psychiatric: Normal Affect, Normal Mood, Flat Affect Skin Exam: Warm, Dry, Intact, Normal Color, No Rash Lymphatic: No Adenopathy Departure - Departure Disposition: Home, Self-Care 01 Clinical Impression: Dehydration, Nausea - Discharge Information Instructions: Nausea, Adult, Dehydration, Adult Forms: ED Department Discharge Additional Instructions: Rx: Zofran 4mg Clear liquid diet until nausea resolves, then advance to soft bland diet as tolerated. Follow up in clinic if not improving in 1 to 2 days. Sepsis Event Note (ED) - Evaluation Sepsis Screening Result: No Definite Risk <Corona Bartholomew - Last Filed: 05/15/20 07:32> ED EXAM, GENERAL - Physical Exam Free Text/Narrative:: No changes to exam as documented by the BULL GANG WORKER for this encounter. Course - Vital Signs Last Recorded V/S: Last Vital Signs Temp 97.6 F 05/15/20 05:42 Pulse 92 05/15/20 05:42 Resp 18 05/15/20 05:42 BP 131/74 05/15/20 05:42 Pulse Ox 99 05/15/20 05:42 - Orders/Labs/Meds Orders: Active Orders 24 hr Category Date Time Status Ondansetron [Zofran] Med 05/15/20 07:24 Once 4 mg IV ONETIME ONE Labs: Laboratory Tests 05/15/20 05/15/20 05/15/20 Range/Units 05:55 05:55 05:55 WBC 10.0 (5.0-10.0) 10^3/uL RBC 4.48 (4.2-5.4) 10^6/uL Hgb 13.0 (12.0-16.0) g/dL Hct 38.5 (37.0-47.0) % MCV 85.9 (80-100) fL MCH 29.0 (27.0-34.0) pg MCHC 33.8 (33.0-35.0) g/dL Plt Count 262 (150-450) 10^3/uL Neut % (Auto) 55.6 (42.2-75.2) % Lymph % (Auto) 29.7 (20.5-50.1) % [place] % (Auto) 11.7 H (2-8) % Eos % (Auto) 2.5 (1.0-3.0) % Baso % (Auto) 0.5 (0.0-1.0) % Sodium 139 (136-145) mmol/L Potassium 3.6 (3.5-5.1) mmol/L Chloride 103 (98-107) mmol/L Carbon Dioxide 26 (21-32) mmol/L Anion Gap 13.6 H (7-13) mEq/L BUN 12 (7-18) mg/dL Creatinine 0.91 (0.55-1.02) mg/dL Est Cr Clr Drug Dosing 90.18 mL/min Estimated GFR (MDRD) > 60 BUN/Creatinine Ratio 13.2 (No establ ref range) Glucose 106 H (74-99) mg/dL Calcium 8.6 (8.5-10.1) mg/dL Total Bilirubin 0.2 (0.2-1.0) mg/dL AST 22 (15-37) U/L ALT 31 (14-59) U/L Alkaline Phosphatase 36 L (46-116) U/L Total Protein 7.3 (6.4-8.2) g/dL Albumin 3.3 L (3.4-5.0) g/dL Globulin 4.0 Albumin/Globulin Ratio 0.83 Amylase 52 (25-115) U/L Lipase 110 (73-393) U/L Urine Color (YELLOW) Urine Appearance (CLEAR) Urine pH (5.0-9.0) Ur Specific [place] (1.005-1.030) Urine Protein (NEGATIVE) Urine Glucose (UA) (NEGATIVE) Urine Ketones (NEGATIVE) Urine Occult Blood (NEGATIVE) Urine Nitrite (NEGATIVE) Urine Bilirubin (NEGATIVE) Urine Urobilinogen (0.2-1.0) mg/dL Ur Leukocyte Esterase (NEGATIVE) Urine HCG, Qual 05/15/20 05/15/20 Range/Units 06:45 06:45 WBC (5.0-10.0) 10^3/uL RBC (4.2-5.4) 10^6/uL Hgb (12.0-16.0) g/dL Hct (37.0-47.0) % MCV (80-100) fL MCH (27.0-34.0) pg MCHC (33.0-35.0) g/dL Plt Count (150-450) 10^3/uL Neut % (Auto) (42.2-75.2) % Lymph % (Auto) (20.5-50.1) % [place] % (Auto) (2-8) % Eos % (Auto) (1.0-3.0) % Baso % (Auto) (0.0-1.0) % Sodium (136-145) mmol/L Potassium (3.5-5.1) mmol/L Chloride (98-107) mmol/L Carbon Dioxide (21-32) mmol/L Anion Gap (7-13) mEq/L BUN (7-18) mg/dL Creatinine (0.55-1.02) mg/dL Est Cr Clr Drug Dosing mL/min Estimated GFR (MDRD) BUN/Creatinine Ratio (No establ ref range) Glucose (74-99) mg/dL Calcium (8.5-10.1) mg/dL Total Bilirubin (0.2-1.0) mg/dL AST (15-37) U/L ALT (14-59) U/L Alkaline Phosphatase (46-116) U/L Total Protein (6.4-8.2) g/dL Albumin (3.4-5.0) g/dL Globulin Albumin/Globulin Ratio Amylase (25-115) U/L Lipase (73-393) U/L Urine Color Dark yellow (YELLOW) Urine Appearance Slightly cloudy (CLEAR) Urine pH 6.0 (5.0-9.0) Ur Specific [place] >= 1.030 (1.005-1.030) Urine Protein Negative (NEGATIVE) Urine Glucose (UA) Negative (NEGATIVE) Urine Ketones Negative (NEGATIVE) Urine Occult Blood Negative (NEGATIVE) Urine Nitrite Negative (NEGATIVE) Urine Bilirubin Negative (NEGATIVE) Urine Urobilinogen 0.2 (0.2-1.0) mg/dL Ur Leukocyte Esterase Negative (NEGATIVE) Urine HCG, Qual Negative Meds: Medications Discontinued Medications Generic Name Dose Route Start Last Admin Trade Name Freq PRN Reason Stop Dose Admin Sodium Chloride 1,000 mls @ 999 mls/hr 05/15/20 06:12 05/15/20 06:15 Normal Saline IV 05/15/20 07:12 999 mls/hr .BOLUS ONE Administration Ondansetron HCl 4 mg 05/15/20 05:56 05/15/20 06:07 Zofran Odt PO 05/15/20 05:57 4 mg ONETIME ONE Administration - Re-Assessments/Exams Free Text/Narrative Re-Assessment/Exam: 05/15/20 07:24 Pt improved following IV hydration and zofran in ER, and wishes to be discharged home. Departure - Departure Time of Disposition: 07:26 Condition: Good - Discharge Information *PRESCRIPTION DRUG MONITORING PROGRAM REVIEWED*: Not Applicable *COPY OF PRESCRIPTION DRUG MONITORING REPORT IN PATIENT NABILA: Not Applicable Sepsis Event Note (ED) - Focused Exam Vital Signs: Vital Signs Temp Pulse Resp BP Pulse Ox 05/15/20 05:42 97.6 F 92 18 131/74 99 - My Orders Last 24 Hours: My Active Orders 05/15/20 07:24 Ondansetron [Zofran] 4 mg IV ONETIME ONE - Assessment/Plan Last 24 Hours: My Active Orders 05/15/20 07:24 Ondansetron [Zofran] 4 mg IV ONETIME ONE
[2020-05-15] MEDS ORDERED: Sodium Chloride 0.9% 1,000 ML IV ONE (06:12)
[2020-05-15 06:28] LABS: ANION GAP 13.6 mEq/L (7-13); CHLORIDE,CL 103 mmol/L (98-107); SODIUM,NA 139 mmol/L (136-145)
[2020-05-15] MEDS ORDERED: Ondansetron 4 MG/2 ML SDV IV ONE (07:24)
== END 2020-05-15 07:43 | disposition home or self-care (01) ==
LOC: DL.ED 05:30
DX: E86.0 Dehydration (principal); K21.9 Gastro-esophageal reflux disease without esophagitis; Z88.1 Allergy status to other antibiotic agents; Z88.5 Allergy status to narcotic agent; Z91.048 Other nonmedicinal substance allergy status; Z79.899 Other long term (current) drug therapy; Z90.49 Acquired absence of other specified parts of digestive tract
CPT/HCPCS: 36415; 80053; 81003; 81025; 82150; 83690; 85025; 96360; 99283; 99284; A9270; J7030

== ENCOUNTER 2021-08-22 18:58 | Emergency (ER) | payer BC, OTHER ==
[2021-08-22] MEDS ORDERED: Ondansetron 4 MG Tab.DIS PO ONE (18:59)
[2021-08-22] MEDS ORDERED: Ibuprofen 600 MG Tab PO ONE (18:59)
[2021-08-22 20:28] VITALS: BP 148/98; PULSE 85
[2021-08-22] MEDS ORDERED: Ondansetron 4 MG Tab.DIS ONE (21:41)
[2021-08-22] MEDS ORDERED: Ibuprofen 600 MG Tab ONE (21:42)
== END 2021-08-22 22:00 | disposition home or self-care (01) ==
LOC: DL.ED 18:58
DX: S80.12XA Contusion of left lower leg, initial encounter (principal); Z88.0 Allergy status to penicillin; Z91.040 Latex allergy status; Z88.5 Allergy status to narcotic agent; W10.8XXA Fall (on) (from) other stairs and steps, initial encounter
CPT/HCPCS: 73590; 99283; A9270

== ENCOUNTER 2021-10-29 05:12 | Emergency (ER) | payer BC, OTHER ==
[2021-10-29 04:03] VITALS: PULSE 72
[2021-10-29 04:13] LABS: ANION GAP 16.3 mEq/L (7-13); CHLORIDE,CL 105 mmol/L (98-107); SODIUM,NA 141 mmol/L (136-145)
[2021-10-29 04:20] LABS: ACETAMINOPHEN 0 ug/mL (10-30 (Therapeutic))
[2021-10-29 04:30] LABS: AMPHETAMINES,URINE NEGATIVE (NEGATIVE); BARBITURATES,URINE NEGATIVE (NEGATIVE); BENZODIAZEPINE,URINE POSITIVE (NEGATIVE); MDMA (ECSTASY), URINE NEGATIVE (NEGATIVE); METHADONE,URINE NEGATIVE (NEGATIVE); METHAMPHETAMINES,URINE NEGATIVE (NEGATIVE); OPIATES,URINE NEGATIVE (NEGATIVE); OXYCODONE,URINE NEGATIVE (NEGATIVE); PHENCYCLIDINE,URINE NEGATIVE (NEGATIVE); TCA,URINE NEGATIVE (NEGATIVE)
[2021-10-29 04:37] LABS: CORONAVIRUS COVID-19 NAA NEGATIVE (NEGATIVE)
[~2021-10-29 05:12] MED LIST: GI Cocktail Oral Solution 30 ML PO ONE; Pantoprazole 40 MG Vial IVPUSH ONE
== END 2021-10-29 05:17 | disposition home or self-care (01) ==
LOC: DL.ED 05:12
DX: K27.9 Peptic ulcer, site unspecified, unspecified as acute or chronic, without hemorrhage or perforation (principal); Z91.048 Other nonmedicinal substance allergy status; Z88.0 Allergy status to penicillin; Z88.5 Allergy status to narcotic agent; Z20.822 Contact with and (suspected) exposure to COVID-19
CPT/HCPCS: 0240U; 36415; 80053; 80143; 80179; 80305; 80307; 81001; 81025; 82140; 82150; 83605; 83690; 83735; 84484; 85025; 87040; 93005; 99284; A9270; C9113; 96374

== ENCOUNTER 2021-11-14 05:33 | Day surgery (SDC) | payer BC, OTHER ==
[~2021-11-14 05:33] MED LIST changes: -GI Cocktail Oral Solution 30 ML PO ONE; +Midazolam 1 MG/ML 2 ML SDV ONE; -Pantoprazole 40 MG Vial IVPUSH ONE; +fentaNYL 100 MCG/2 ML SDV ONE
[2021-11-14] MEDS ORDERED: fentaNYL 100 MCG/2 ML SDV IV ONE ×3 (05:34→06:34)
[2021-11-14] MEDS ORDERED: Midazolam 1 MG/ML 2 ML SDV IV ONE ×3 (05:34→06:35)
[2021-11-14 08:01] VITALS: PULSE 69
[2021-11-14 08:59] VITALS: BP 108/88
[2021-11-14] MEDS ORDERED: Dextrose 5%-0.45% NaCl 1,000 ML IV SCH (09:00)
== END 2021-11-14 08:45 | disposition home or self-care (01) ==
LOC: DL.ENDO 05:33
PROVIDERS: ATTEND Internal Medicine Gastroenterology
DX: K31.84 Gastroparesis (principal); K21.9 Gastro-esophageal reflux disease without esophagitis; I78.1 Nevus, non-neoplastic; K31.A0 Gastric intestinal metaplasia, unspecified; Z88.0 Allergy status to penicillin; Z88.5 Allergy status to narcotic agent; Z91.048 Other nonmedicinal substance allergy status; Z90.49 Acquired absence of other specified parts of digestive tract; Z98.890 Other specified postprocedural states
CPT/HCPCS: 43239; 81025; 87077; J2250; J3010; J7042

== ENCOUNTER 2022-01-18 01:07 | Emergency (ER) | payer BC, OTHER ==
[2022-01-18] MEDS ORDERED: Sodium Chloride 0.9% 1,000 ML IV ONE (01:46)
[2022-01-18] MEDS ORDERED: Ondansetron 4 MG/2 ML SDV IVPUSH ONE (01:46)
[2022-01-18 01:50] VITALS: BP 127/74; PULSE 73
[2022-01-18 02:13] LABS: AMPHETAMINES,URINE NEGATIVE (NEGATIVE); BARBITURATES,URINE NEGATIVE (NEGATIVE); BENZODIAZEPINE,URINE NEGATIVE (NEGATIVE); MDMA (ECSTASY), URINE NEGATIVE (NEGATIVE); METHADONE,URINE NEGATIVE (NEGATIVE); METHAMPHETAMINES,URINE NEGATIVE (NEGATIVE); OPIATES,URINE NEGATIVE (NEGATIVE); OXYCODONE,URINE NEGATIVE (NEGATIVE); PHENCYCLIDINE,URINE NEGATIVE (NEGATIVE); TCA,URINE NEGATIVE (NEGATIVE)
[2022-01-18 02:30] LABS: ANION GAP 11.3 mEq/L (7-13); CHLORIDE,CL 102 mmol/L (98-107); SODIUM,NA 139 mmol/L (136-145)
[2022-01-18 02:34] LABS: ESTIMATED GFR > 60
[2022-01-18 02:42] LABS: CORONAVIRUS COVID-19 NAA NEGATIVE (NEGATIVE)
[2022-01-18] MEDS ORDERED: Pantoprazole 40 MG Vial IVPUSH ONE (02:54)
== END 2022-01-18 03:09 | disposition home or self-care (01) ==
LOC: DL.ED 01:07
DX: K52.9 Noninfective gastroenteritis and colitis, unspecified (principal); K21.9 Gastro-esophageal reflux disease without esophagitis; Z86.16 Personal history of COVID-19; Z88.0 Allergy status to penicillin; Z88.5 Allergy status to narcotic agent; Z91.048 Other nonmedicinal substance allergy status; Z79.899 Other long term (current) drug therapy; Z20.822 Contact with and (suspected) exposure to COVID-19
CPT/HCPCS: 0240U; 36415; 80053; 80305; 81003; 81025; 83605; 85025; 96361; 96374; 96375; 99284; C9113; J2405; J7030

== ENCOUNTER 2023-05-08 01:45 | Emergency (ER) | payer BC, OTHER ==
[2023-05-08] MEDS ORDERED: Sodium Chloride 0.9% 10 ML Syringe FLUSH PRN (02:09)
[2023-05-08 02:12] VITALS: BP 121/86; PULSE 73
[2023-05-08 02:28] LABS: BASOPHILS PERCENT AUTO 0.3 % (0.0-1.0); EOSINOPHILS PERCENT AUTO 2.7 % (1.0-3.0); HEMATOCRIT 41.4 % (37.0-47.0); HEMOGLOBIN 13.8 g/dL (12.0-16.0); LYMPHOCYTES PERCENT AUTO 24.5 % (20.5-50.1); MEAN CORPUSCULAR HEMOGLOBIN 28.9 pg (27.0-34.0); MEAN CORPUSCULAR HGB CONC 33.3 g/dL (33.0-35.0); MEAN CORPUSCULAR VOLUME 86.6 fL (80-100); NEUTROPHILS PERCENT AUTO 60.5 % (42.2-75.2); PLATELET COUNT,PLT 330 10^3/uL (150-450); RED BLOOD CELL COUNT 4.78 10^6/uL (4.2-5.4); WHITE BLOOD CELL COUNT,WBC 15.8 10^3/uL (5.0-10.0)
[2023-05-08] MEDS ORDERED: Ondansetron 4 MG/2 ML SDV IVPUSH ONE (02:28)
[2023-05-08 02:42] LABS: A/G RATIO 0.8; ALANINE AMINOTRANSFERASE,ALT 22 U/L (14-59); ALBUMIN 3.4 g/dL (3.4-5.0); ALKALINE PHOSPHATASE 42 U/L (46-116); ANION GAP 10.6 mEq/L (7-13); ASPARTATE AMNIOTRANSFERASE,AST 15 U/L (15-37); BILIRUBIN TOTAL 0.4 mg/dL (0.2-1.0); BLOOD UREA NITROGEN,BUN 14 mg/dL (7-18); BUN/CREATININE RATIO 15.9 (No establ ref range); CARBON DIOXIDE,CO2 29 mmol/L (21-32); CHLORIDE,CL 102 mmol/L (98-107); CREATININE 0.88 mg/dL (0.55-1.02); EST CRCL DRUG DOSING (CG) 87.44 mL/min; GLUCOSE RANDOM 108 mg/dL (70-99); POTASSIUM,K 3.6 mmol/L (3.5-5.1); PROTEIN TOTAL,TP 7.9 g/dL (6.4-8.2); SODIUM,NA 138 mmol/L (136-145)
[2023-05-08 02:45] LABS: INR 0.9 (0.9-1.2); PROTHROMBIN TIME 9.6 SEC (9.0-12.0); PTT,PARTIAL THROMBOPLSTIN TIME 29.4 SEC (22.0-34.0)
[2023-05-08 02:53] LABS: ESTIMATED GFR 86 mL/min (>=60)
[2023-05-08 03:00] LABS: AMPHETAMINES,URINE NEGATIVE (NEGATIVE); APPEARANCE,URINE CLEAR (CLEAR); BARBITURATES,URINE NEGATIVE (NEGATIVE); BENZODIAZEPINE,URINE NEGATIVE (NEGATIVE); BILIRUBIN,URINE NEGATIVE (NEGATIVE); COLOR,URINE YELLOW (YELLOW); GLUCOSE,URINE NEGATIVE (NEGATIVE); KETONES,URINE NEGATIVE (NEGATIVE); LEUKOCYTE ESTERASE,URINE NEGATIVE (NEGATIVE); MDMA (ECSTASY), URINE NEGATIVE (NEGATIVE); METHADONE,URINE NEGATIVE (NEGATIVE); METHAMPHETAMINES,URINE NEGATIVE (NEGATIVE); NITRITE,URINE NEGATIVE (NEGATIVE); OCCULT BLOOD,URINE NEGATIVE (NEGATIVE); OPIATES,URINE NEGATIVE (NEGATIVE); OXYCODONE,URINE NEGATIVE (NEGATIVE); PHENCYCLIDINE,URINE NEGATIVE (NEGATIVE); PROTEIN,URINE NEGATIVE (NEGATIVE); TCA,URINE NEGATIVE (NEGATIVE); UROBILINOGEN,URINE 0.2 mg/dL (0.2-1.0)
[2023-05-08 03:21] LABS: CORONAVIRUS COVID-19 NAA NEGATIVE (NEGATIVE); INFLUENZA A NAA NEGATIVE (NEGATIVE); INFLUENZA B NAA NEGATIVE (NEGATIVE); RESPIRATORY SYNCYTIAL VIR NAA NEGATIVE (NEGATIVE)
[2023-05-08] MEDS ORDERED: Take Home: Ondansetron 4 MG Tab.DIS, 5 Tab Pack PO ONE (05:15)
== END 2023-05-08 05:27 | disposition home or self-care (01) ==
LOC: DL.ED 01:45
DX: R07.89 Other chest pain (principal); B34.9 Viral infection, unspecified; Z88.0 Allergy status to penicillin; Z88.5 Allergy status to narcotic agent; Z91.09 Other allergy status, other than to drugs and biological substances
CPT/HCPCS: 0241U; 36415; 71045; 80053; 80305-QW; 81003; 81025; 84484; 85025; 85610; 85730; 87081; 87430; 93005; 93010; 96374; 99284; 99285-25; J2405; J3490; Q0162

== ENCOUNTER 2023-09-14 10:36 | Emergency (ER) | payer BC, OTHER ==
[2023-09-14 10:53] VITALS: BP 131/90; PULSE 93
[2023-09-14] MEDS: Sodium Chloride 0.9% 1,000 ML IV ONE (11:18)
[2023-09-14] MEDS: Sodium Chloride 0.9% 10 ML Syringe FLUSH PRN (11:18)
[2023-09-14] MEDS: Ondansetron 4 MG/2 ML SDV IV ONE ×2 (11:19→13:32)
[2023-09-14 11:20] LABS: BASOPHILS PERCENT AUTO 0.1 % (0.0-1.0); EOSINOPHILS PERCENT AUTO 0.7 % (1.0-3.0); HEMOGLOBIN 14.8 g/dL (12.0-16.0); LYMPHOCYTES PERCENT AUTO 8.1 % (20.5-50.1); MEAN CORPUSCULAR HEMOGLOBIN 28.7 pg (27.0-34.0); MEAN CORPUSCULAR HGB CONC 33.6 g/dL (33.0-35.0); MEAN CORPUSCULAR VOLUME 85.3 fL (80-100); MONOCYTES PERCENT AUTO 4.7 % (2-8); NEUTROPHILS PERCENT AUTO 86.4 % (42.2-75.2); PLATELET COUNT,PLT 356 10^3/uL (150-450); RED BLOOD CELL COUNT 5.16 10^6/uL (4.2-5.4); WHITE BLOOD CELL COUNT,WBC 20.4 10^3/uL (5.0-10.0)
[2023-09-14 11:28] LABS: HCG QUALITATIVE,SERUM NEGATIVE (NEGATIVE)
[2023-09-14 11:32] LABS: A/G RATIO 0.7; ALANINE AMINOTRANSFERASE,ALT 24 U/L (14-59); ALBUMIN 3.5 g/dL (3.4-5.0); ALKALINE PHOSPHATASE 43 U/L (46-116); ANION GAP 17.7 mEq/L (7-13); ASPARTATE AMNIOTRANSFERASE,AST 15 U/L (15-37); BILIRUBIN TOTAL 0.3 mg/dL (0.2-1.0); BLOOD UREA NITROGEN,BUN 12 mg/dL (7-18); BUN/CREATININE RATIO 13.8 (No establ ref range); CALCIUM 8.8 mg/dL (8.5-10.1); CARBON DIOXIDE,CO2 22 mmol/L (21-32); CHLORIDE,CL 103 mmol/L (98-107); CREATININE 0.87 mg/dL (0.55-1.02); EST CRCL DRUG DOSING (CG) 90.73 mL/min; GLUCOSE RANDOM 111 mg/dL (70-99); MAGNESIUM 1.6 mg/dL (1.8-2.4); POTASSIUM,K 3.7 mmol/L (3.5-5.1); PROTEIN TOTAL,TP 8.5 g/dL (6.4-8.2); SODIUM,NA 139 mmol/L (136-145)
[2023-09-14 11:33] LABS: ESTIMATED GFR 87 mL/min (>=60)
[2023-09-14] MEDS: Magnesium Sulfate/Water 2 GM in Premix Bag 1 BAG IV ONE (11:45)
[2023-09-14 11:51] LABS: CORONAVIRUS COVID-19 NAA NEGATIVE (NEGATIVE); INFLUENZA A NAA POSITIVE (NEGATIVE); INFLUENZA B NAA NEGATIVE (NEGATIVE); RESPIRATORY SYNCYTIAL VIR NAA NEGATIVE (NEGATIVE)
[2023-09-14] MEDS: Take Home: Ondansetron 4 MG Tab.DIS, 5 Tab Pack PO ONE (12:50)
[2023-09-14] MEDS: Ketorolac 30 MG/ML SDV IVPUSH ONE (13:33)
[2023-09-14] MEDS: Acetaminophen 500 MG Tab PO ONE (13:33)
== END 2023-09-14 13:45 | disposition home or self-care (01) ==
LOC: DL.ED 10:36
DX: A05.9 Bacterial foodborne intoxication, unspecified (principal); J10.1 Influenza due to other identified influenza virus with other respiratory manifestations; E86.0 Dehydration; K21.9 Gastro-esophageal reflux disease without esophagitis; Z88.0 Allergy status to penicillin; Z91.048 Other nonmedicinal substance allergy status; Z88.8 Allergy status to other drugs, medicaments and biological substances; Z79.899 Other long term (current) drug therapy; Z86.16 Personal history of COVID-19; Z90.49 Acquired absence of other specified parts of digestive tract
CPT/HCPCS: 0241U; 36415; 80053; 83735; 84703; 85025; 96365; 96366; 96375; 96376; 99284; 99284-25; A9270-GY; J1885; J2405; J3475; J3490; J7030; Q0162

== ENCOUNTER 2024-11-05 22:36 | Emergency (ER) | payer BC, OTHER ==
[2024-11-05] MEDS: Ondansetron 4 MG Tab.DIS PO ONE (23:10)
[2024-11-05] MEDS: Ondansetron 4 MG/2 ML SDV IVPUSH ONE (23:32)
[2024-11-05] MEDS: Sodium Chloride 0.9% 1,000 ML IV ONE (23:32)
[2024-11-05 23:35] LABS: BASOPHILS PERCENT AUTO 0.2 % (0.0-1.0); HEMATOCRIT 40.2 % (37.0-47.0); HEMOGLOBIN 13.1 g/dL (12.0-16.0); LYMPHOCYTES PERCENT AUTO 12.8 % (20.5-50.1); MEAN CORPUSCULAR HEMOGLOBIN 27.9 pg (27.0-34.0); MEAN CORPUSCULAR HGB CONC 32.6 g/dL (33.0-35.0); MEAN CORPUSCULAR VOLUME 85.5 fL (80-100); MONOCYTES PERCENT AUTO 8.7 % (2-8); NEUTROPHILS PERCENT AUTO 77.3 % (42.2-75.2); PLATELET COUNT,PLT 358 10^3/uL (150-450)
[2024-11-05 23:40] LABS: APPEARANCE,URINE CLEAR (CLEAR); BILIRUBIN,URINE NEGATIVE (NEGATIVE); COLOR,URINE YELLOW (YELLOW); GLUCOSE,URINE NEGATIVE (NEGATIVE); KETONES,URINE NEGATIVE (NEGATIVE); LEUKOCYTE ESTERASE,URINE NEGATIVE (NEGATIVE); NITRITE,URINE NEGATIVE (NEGATIVE); OCCULT BLOOD,URINE TRACE-INTACT (NEGATIVE); PROTEIN,URINE NEGATIVE (NEGATIVE); UROBILINOGEN,URINE 0.2 mg/dL (0.2-1.0)
[2024-11-05 23:55] LABS: ALANINE AMINOTRANSFERASE,ALT 16 U/L (14-59); ALBUMIN 3.3 g/dL (3.4-5.0); ALKALINE PHOSPHATASE 48 U/L (46-116); ASPARTATE AMNIOTRANSFERASE,AST 11 U/L (15-37); BILIRUBIN TOTAL 0.2 mg/dL (0.2-1.0); BLOOD UREA NITROGEN,BUN 11 mg/dL (7-18); BUN/CREATININE RATIO 11.5 (No establ ref range); CALCIUM 8.8 mg/dL (8.5-10.1); CARBON DIOXIDE,CO2 24 mmol/L (21-32); CHLORIDE,CL 104 mmol/L (98-107); CREATININE 0.96 mg/dL (0.55-1.02); GLUCOSE RANDOM 109 mg/dL (70-99); LIPASE 43 U/L (16-77); MAGNESIUM 1.7 mg/dL (1.8-2.4); PROTEIN TOTAL,TP 8.1 g/dL (6.4-8.2); SODIUM,NA 140 mmol/L (136-145)
[2024-11-05 23:59] LABS: A/G RATIO 0.69; ESTIMATED GFR 77 mL/min (>=60)
[2024-11-06 00:04] LABS: BACTERIA,URINE FEW /HPF (0-FEW/HPF); EPITHELIAL CELLS,URINE FEW /HPF (NOT SEEN); MUCUS,URINE FEW /LPF (NOT SEEN); RBC,URINE 0-5 /HPF (0-5); WBC,URINE 0-5 /HPF (0-5/HPF)
[2024-11-06] MEDS: Metoclopramide 10 MG/2 ML SDV IVPUSH ONE (00:43)
[2024-11-06] MEDS: diphenhydrAMINE 50 MG/ML SDV IVPUSH ONE (00:43)
[2024-11-06] MEDS: Take Home: Ondansetron 4 MG Tab.DIS, 5 Tab Pack PO ONE (01:35)
[2024-11-06] MEDS: Potassium Chloride 10 MEQ Tab.ER PO ONE (01:35)
[2024-11-06 01:42] VITALS: BP 132/76; PULSE 84
== END 2024-11-06 01:43 | disposition home or self-care (01) ==
LOC: DL.ED 22:36
DX: K52.9 Noninfective gastroenteritis and colitis, unspecified (principal); D72.829 Elevated white blood cell count, unspecified; E87.6 Hypokalemia; K21.9 Gastro-esophageal reflux disease without esophagitis; Z88.1 Allergy status to other antibiotic agents; Z88.8 Allergy status to other drugs, medicaments and biological substances; Z79.899 Other long term (current) drug therapy; Z86.16 Personal history of COVID-19; Z90.49 Acquired absence of other specified parts of digestive tract
CPT/HCPCS: 36415; 80053; 81001; 81025; 83690; 83735; 85025; 87428; 96361; 96374; 96375; 99284; A9270; J1200; J2405; J2765; J7030; Q0162